=== PATIENT | male | born 2000 | race Caucasian/White ===

== ENCOUNTER 2019-08-20 23:58 | Emergency (ER) | payer OTHER, SELFPAY ==
--- NOTE | ~2019-08-20 | CT_ITS ---
EXAMINATION: CT abdomen pelvis wo con DATE: 08/21/2019 00:35 INDICATION: Right lower quadrant abdominal pain. Right flank pain. TECHNIQUE: Computed tomography (CT) of the abdomen and pelvis was performed without intravenous contr ast. Automated exposure control and iterative reconstruction technique were employed. The dose-length product was 406.33 mGy-cm. COMPARISON: CT abdomen and pelvis 10/23/2013 FINDINGS: The visualized portions of the lung bases demonstrate minimal atelectasis on the right. No pleural effusion. The heart size is normal. No pericardial effusion. The liver, gallbladder, spleen, pancreas, adrenal glands, and left kidney are normal. There is mild right hydronephrosis and hydroure ter. There is a 2 mm stone in distal right ureter. There are no dilated loops of bowel. The appendix is normal. There are no pathologically enlarged lymph nodes. There is no free intraperitoneal fluid. There is levoscoliosis of thoracolumbar spine. IMPRESSION: 1. 2 mm stone in distal right ureter with mild right hydronephrosis and hydroureter. Reviewed, dictated and finalized at location A. IMPRESSION: 1. 2 mm stone in distal right ureter with mild right hydronephrosis and hydrour eter.
[2019-08-21 00:03] VITALS: BP 124/76; PULSE 61; RESP 16; TEMP 36.3; O2SAT 100
[2019-08-21 00:14] VITALS: BP 109/67; PULSE 52; RESP 19; TEMP 36.8; O2SAT 100
[2019-08-21] MEDS: MORPHINE SULFATE 4 MG/ML INJ IV PUSH (00:45)
[2019-08-21] MEDS: SODIUM CHLORIDE 0.9% IV 1,000 ML 999 ML IV CONT (00:45)
[2019-08-21 01:05] LABS: Add Urine Microscopic? YES; Appearance Urine Clear (Clear); Bilirubin Urine Negative (Negative); Blood Urine 2+ (Negative); Color Urine Yellow (Yellow); Glucose Urine UA Negative (Negative); Ketones Urine Negative (Negative); Leukocyte Esterase Ur Negative LEU/UL (Negative); Mucus Urine Heavy /lpf; Nitrate Urine Negative (Negative); Protein Urine Negative (Negative); RBC Urine 21-50 /hpf (0-2); Specific Grav Ur 1.029 (1.001-1.035); Squamous Epithelial Cell Urine Rare /hpf (Few); Urobilinogen Urine Negative mg/dL (<2.0); WBC Urine 0-3 /hpf
--- NOTE | 2019-08-21 01:07 | ED.ABDPAIN ---
HPI - Abdominal Pain General Chief Complaint: Urogenital-Male Stated Complaint: lower abd pain Time Seen by Provider: 08/21/19 00:09 History of Present Illness HPI narrative: Patient is a 19-year-old male who presents ER with sudden onset right-sided abdominal pain. Radiates down into his right testicle. No dysuria or hematuria. Mild nausea without vomiting. No fever/chills/sweats. Family history of kidney stones but none personally. No aggravating or alleviating factors. Related Data Allergies Allergy/AdvReac Type Severity Reaction Status Date / Time amoxicillin Allergy Unknown Verified 04/12/17 18:49 clavulanic acid Allergy Unknown Verified 04/12/17 18:49 Review of Systems Review of Systems: All systems reviewed & are unremarkable except as noted in HPI and below Constitutional: Constitutional: Denies chills, Denies fever(s) and Denies weakness ENT: Denies nasal congestion and Denies sore throat Respiratory: Respiratory: Denies cough Gastrointestinal: Gastrointestinal: Reports abdominal pain, Denies diarrhea and Denies vomiting Genitourinary: Genitourinary: Denies hematuria, Denies dysuria and Denies urinary frequency PMFSH Past Medical History Medical History (Updated 08/21/19 @ 01:25 by Jh Mendez MD) No pertinent past medical history Surgical History Surgical History (Updated 08/21/19 @ 01:20 by Jh Mendez MD) No pertinent past surgical history Social History Social History (Updated 08/21/19 @ 01:20 by Jh Mendez MD) Social History: Vaping Tobacco type: e-cigarettes Gender identity (if verbalized by the patient): Male Exam Narrative: Exam Narrative: GENERAL: Well-appearing, well-nourished, and in no acute distress. HEAD: Normocephalic, atraumatic. ENT: Mucous membranes moist. CHEST: Clear to auscultation. No respiratory distress. HEART: Regular rate and rhythm. Normal peripheral pulses. ABDOMEN: Soft, nontender, nondistended. EXTREMITIES: Normal range of motion. No edema. SKIN: Warm, dry, no rash. NEURO: Alert and oriented x3. Course Course Emergency Course: Informed of results. D/c home. Vital Signs Vital signs: Vital Signs Temperature 97.3 F L 08/21/19 00:03 Pulse Rate 61 08/21/19 00:03 Respiratory Rate 16 08/21/19 00:03 Blood Pressure 124/76 08/21/19 00:03 Pulse Oximetry 100 08/21/19 00:03 Temperature 98.2 F 08/21/19 00:14 Pulse Rate 52 L 08/21/19 00:14 Respiratory Rate 19 08/21/19 00:14 Blood Pressure 109/67 08/21/19 00:14 Pulse Oximetry 100 08/21/19 00:14 MDM - Abdominal Pain Lab Data Labs: Lab Results 08/21/19 Range/Units 00:44 Urine Color Yellow (Yellow) Urine Appearance Clear (Clear) Urine pH 5.0 (5.0-9.0) Ur Specific [place] 1.029 (1.001-1.035) Urine Protein Negative (Negative) mg/dL Urine Glucose (UA) Negative (Negative) mg/dL Urine Ketones Negative (Negative) mg/dL Ur Blood (Man) 2+ H (Negative) Urine Nitrate Negative (Negative) Urine Bilirubin Negative (Negative) Urine Urobilinogen Negative (<2.0) mg/dL Leukocyte Esterase Rfl Negative (Negative) ILYA/UL Urine RBC 21-50 H (0-2) /hpf Urine WBC 0-3 /hpf Ur Squamous Epith Cells Rare (Few) /hpf Urine Mucus Heavy H /lpf Imaging Data Radiologist's impression: CT A/P w/o contrast: 2mm distal right ureter stone. Discharge Plan Discharge Clinical Impression: Ureterolithiasis Patient Disposition: Home, Self-Care Condition: Stable Instructions: Kidney Stones (ED) Additional Instructions: Return the ER if you have worsening pain, you cannot keep down food or water, you have additional concerns. Prescriptions: New hydrocodone-acetaminophen 5-325 mg tablet 1 tablet PO Q6H PRN (Reason: pain) Qty: 10 RF: 0 tamsulosin 0.4 mg capsule 0.4 mg PO DAILY Qty: 4 RF: 0 ondansetron 4 mg tablet,disintegrating 4 mg PO Q6H PRN (Reason: nausea and vomiting) Qty: 10 RF:
[2019-08-21 01:18] VITALS: BP 114/81; PULSE 70; RESP 19; O2SAT 100
[2019-08-21 01:44] VITALS: BP 115/67; PULSE 88; RESP 19; TEMP 36.8; O2SAT 100
== END 2019-08-21 01:45 | disposition home or self-care (01) ==
PROVIDERS: Emergency Provider Emergency Medicine; PCP Internal Medicine
DX: N13.2 Hydronephrosis with renal and ureteral calculous obstruction (principal); F17.290 Nicotine dependence, other tobacco product, uncomplicated
CPT/HCPCS: 74176; 81001; 96361; 96374; 99284; A9270; J2270; J7030

== ENCOUNTER 2019-09-07 07:58 | Outpatient (CLI) | payer OTHER, SELFPAY ==
--- NOTE | ~2019-09-07 | US_ITS ---
US retroperitoneal comp DATE: 09/07/2019 08:32 INDICATION: Hematuria TECHNIQUE: Real-time imaging of the kidneys and urinary bladder COMPARISON: 08/21/2019 CT abdomen and pelvis noncontrast examination FINDINGS: The right kidney measures 9.4 cm length, the left kidney 10.0 cm. No renal mass lesion or h ydronephrosis is evident. The urinary bladder is unremarkable. IMPRESSION: Normal Reviewed, dictated and finalized at [facility]. Reviewed, dictated and finalized at location A. IMPRESSION: Normal
== END 2019-09-07 07:59 | disposition home or self-care (01) ==
PROVIDERS: PCP Internal Medicine; Visit Provider Internal Medicine
DX: R31.9 Hematuria, unspecified (principal); N20.1 Calculus of ureter
CPT/HCPCS: 76770

== ENCOUNTER 2020-08-11 12:20 | Emergency (ER) | payer OTHER, SELFPAY ==
--- NOTE | ~2020-08-11 | XR_ITS ---
XR ankle RT 2V 08/11/2020 12:48 INDICATION: Right ankle pain PROCEDURE: 2 views right ankle COMPARISON: 10/15/2009 FINDINGS: Fracture, dislocation or subluxation is not identified. There is lateral soft tissue swelli ng. Ankle mortise intact. No foreign bodies are identified. IMPRESSION: 1: NO ACUTE BONE OR JOINT ABNORMALITY IDENTIFIED. Reviewed, dictated and finalized at location [facility].
[2020-08-11 12:40] VITALS: BP 118/75; PULSE 88; RESP 16; TEMP 36.6; O2SAT 99
[2020-08-11] MEDS: KETOROLAC (*BKC) 60 MG/2 ML VIAL IM (12:48)
--- NOTE | 2020-08-11 13:18 | ED.LOWEXIN ---
HPI - Extremity Injury (Lower) General Chief Complaint: Extremity Injury, Lower Stated Complaint: ankle pain Source: patient and family Mode of arrival: ambulatory History of Present Illness HPI Narrative: this is a 20-year-old male that misstepped and twisted his right ankle causing pain inflammation with swelling with decreased range of motion secondary to pain and inflammation patient did hear a pop when he misstepped and cause some inversion of his right ankle pain is rated about an 8/10. MD complaint: ankle injury Injury: Right: ankle ( bilateral malleolus swelling) Type of Injury: inversion Place: work Severity: moderate Severity scale (1-10): 8 Relieving factors: cold therapy and immobilization Exacerbating factors: weight bearing and movement Context: walking Associated symptoms: snap/pop sensation Other symptoms: none Related Data Home Medications Medication Instructions Recorded Confirmed citalopram 40 mg PO DAILY 08/11/20 08/11/20 divalproex 500 mg PO BID 08/11/20 08/11/20 methylphenidate HCl 10 mg PO QACLUNCH 08/11/20 08/11/20 methylphenidate HCl 72 mg PO QAM 08/11/20 08/11/20 mirtazapine 15 mg PO DAILY 08/11/20 08/11/20 olanzapine 5 mg PO DAILY 08/11/20 08/11/20 Allergies Allergy/AdvReac Type Severity Reaction Status Date / Time amoxicillin Allergy Unknown Verified 04/12/17 18:49 clavulanic acid Allergy Unknown Verified 04/12/17 18:49 Review of Systems Review of Systems: All systems reviewed & are unremarkable except as noted in HPI and below PMFSH Past Medical History Medical History No pertinent past medical history Surgical History Surgical History No pertinent past surgical history Social History Social History Social History: Vaping Tobacco type: e-cigarettes/vaping Gender identity (if verbalized by the patient): Male Exam Const: General: no acute distress and alert Orientation/consciousness: patient oriented x3 Limitations: altered mental status HENMT: Head: normal to inspection Eyes: Pupils: Equal, round and reactive pupils present Neck: Neck: no lymphadenopathy and no meningeal signs Chest: Chest palpation & inspection: normal inspection of the chest Resp: Effort & Inspection: normal respiratory effort Auscultation: clear to auscultation bilaterally GI: GI Palp: Yes Soft to palpation Percussion: Yes normal to percussion Urinary Catheter: Urinary Catheter: patent and draining Skin: General skin exam: normal color Rashes: no rashes Neuro: General: patient oriented x3 and moves all extremities Extrem: Other: Has right ankle pain and swelling decreased range of motion secondary to pain and inflammation. Psych: Appearance: grossly normal Mental Status: mental status grossly normal Affect: normal affect Course Course Emergency Course: Reviewed x-ray with patient and assessment after receiving pain medication is more comfortable, place an Dylan wrap and advised patient to take anti-inflammatories and follow-up with primary care physician if symptoms persist or worsen. Vital Signs Vital signs: Vital Signs Temperature 36.6 C 08/11/20 12:40 Pulse Rate 88 08/11/20 12:40 Respiratory Rate 16 08/11/20 12:40 Blood Pressure 118/75 08/11/20 12:40 Pulse Oximetry 99 08/11/20 12:40 Temperature 36.6 C 08/11/20 12:40 Pulse Rate 88 08/11/20 12:40 Respiratory Rate 16 08/11/20 12:40 Blood Pressure 118/75 08/11/20 12:40 Pulse Oximetry 99 08/11/20 12:40 Critical Care Time Critical Care Time Critical Care Time: No Discharge Plan Discharge Clinical Impression: Ankle sprain and strain Patient Disposition: Home, Self-Care Condition: Stable Instructions: Antibiotic Form, Ankle Sprain (ED) Additional Instructions: can take Motrin or Aleve about 400
== END 2020-08-11 13:33 | disposition home or self-care (01) ==
PROVIDERS: Emergency Provider Emergency Medicine; PCP Internal Medicine
DX: S93.401A Sprain of unspecified ligament of right ankle, initial encounter (principal); X58.XXXA Exposure to other specified factors, initial encounter
CPT/HCPCS: 73600; 96372; 99283; J1885

== ENCOUNTER 2022-11-26 14:13 | Emergency (ER) | payer OTHER, BC, SELFPAY ==
[2022-11-26 14:15] VITALS: BP 125/75; PULSE 111; RESP 18; TEMP 36.6; O2SAT 100
[2022-11-26 16:32] VITALS: BP 114/67; PULSE 83; RESP 16; O2SAT 99
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
[2022-11-26 18:10] VITALS: BP 114/72; PULSE 74; RESP 16; O2SAT 100
== END 2022-11-26 18:16 | disposition home or self-care (01) ==
PROVIDERS: Emergency Provider Physician Assistant; PCP Internal Medicine
DX: L24.1 Irritant contact dermatitis due to oils and greases (principal)
CPT/HCPCS: 99283